=== PATIENT | male | born 1980 | race Two or more races ===

== ENCOUNTER 2018-09-19 01:26 | Emergency (ER) | payer MEDICAID ==
[~2018-09-19] VITALS: Ht 175.3 cm; Wt 88.5 kg
[~2018-09-19 01:26] MED LIST: FURO40TA4 PO; POTA1TAB61 PO
[2018-09-19 01:51] VITALS: BP 118/89
[2018-09-19 02:07] LABS: Basophils # (auto) 0.1 uL; Basophils % (auto) 1.3 % (0.0-2.0); Eosinophils # (auto) 0.2 uL; Eosinophils % (auto) 2.7 % (0.0-7.0); Hematocrit 44.5 % (41.0-53.0); Hemoglobin 14.7 g/dL (13.5-17.5); Lymphocytes # (auto) 0.9 uL; Lymphocytes % (auto) 12.8 % (10.0-50.0); Mean Corpuscular Hemoglobin 33.2 pg (28.0-32.0); Mean Corpuscular Volume 100.7 fL (80.0-100.0); Monocytes # (auto) 0.8 uL; Monocytes % (auto) 11.1 % (0.0-12.0); Neutrophils # (auto) 5.3 uL; Neutrophils % (auto) 72.1 % (37.0-80.0); Nucleated Red Blood Cells % 0.1 %; Platelet Count (auto) 149 10^3/uL (140-450); Red Blood Cells 4.42 10^6/uL (4.5-5.90); Red Cell Distribution Width 15.4 % (11.8-14.3); White Blood Cell 7.3 10^3/uL (4.4-10.8)
[2018-09-19 02:22] LABS: INR 1.23 (0.9-1.15); Partial Thromboplastin Time 26.3 sec (23.78-33.04)
[2018-09-19 02:26] LABS: Albumin 2.9 g/dL (3.4-5.0); BUN/Creatinine Ratio 10.6; Calcium 7.6 mg/dL (8.5-10.1); Magnesium 2.2 mg/dL (1.6-2.6); Potassium 3.8 mmol/L (3.5-5.1)
[2018-09-19 02:31] LABS: Bilirubin, Total 1.8 mg/dL (0.2-1.0); Total Protein 8.4 g/dL (6.4-8.2)
== END 2018-09-19 02:00 | disposition left against medical advice (07) ==
LOC: ER 01:30
DX: R07.9 Chest pain, unspecified (principal); Z53.21 Procedure and treatment not carried out due to patient leaving prior to being seen by health care provider
CPT/HCPCS: 36415; 80053; 83735; 83880; 84443; 84484; 85025; 85610; 85730; 93005

== ENCOUNTER 2018-09-29 03:28 | Inpatient (IN) | payer MEDICAID | END 2018-10-01 13:50 | disposition home or self-care (01) | LOC: ER 03:28 → TELE-WESTW 09-30 11:05 → TELE 18:18 | DX: I11.0 Hypertensive heart disease with heart failure (principal); I21.4 Non-ST elevation (NSTEMI) myocardial infarction; J96.21 Acute and chronic respiratory failure with hypoxia; I50.43 Acute on chronic combined systolic (congestive) and diastolic (congestive) heart failure; F15.10 Other stimulant abuse, uncomplicated; E87.6 Hypokalemia; E78.5 Hyperlipidemia, unspecified ==